=== PATIENT | female | born 1975 | race Two or more races ===

== ENCOUNTER → 2025-04-29 | Outpatient (CLI) | payer MEDICAID, SELFPAY ==
--- NOTE | 2025-04-29 14:42 | XR_ITS ---
Examination: Bilateral wrists 6 views TECHNIQUE: AP oblique lateral each wrist total 6 views Date and time: April 02, 2025 1455 hours INDICATIONS: Bilateral wrist pain 15 years. FINDINGS: Mild osteopenia. No fracture or dislocation involving either wrist No avascular necrosis. No erosive or other significant arthritic change IMPRESSION: No erosive or other significant arthritic change involving either wrist
--- NOTE | 2025-04-29 14:42 | XR_ITS ---
Examination: Bilateral hands, 6 views. Technique: AP, Oblique, Lateral each hand total 6 views Date and time of exam: April 29, 2025 1448 hours INDICATIONS: Bilateral hand pain beginning 15 years ago Findings: Mild juxta-articular bone demineralization Bilateral mild osteoarthritis distal interphalangeal joints second through fifth digits and interphalangeal joints first digits No erosive arthritis No fractures IMPRESSION: Mild osteoarthritis as above
== END | disposition home or self-care (01) ==
LOC: CDIM 14:34
PROVIDERS: PCP Nurse Practitioner Family
DX: M25.531 Pain in right wrist (principal); M25.532 Pain in left wrist; M19.042 Primary osteoarthritis, left hand; M19.041 Primary osteoarthritis, right hand
CPT/HCPCS: 73110; 73130